=== PATIENT | male | born 1960 | race Caucasian/White ===

== ENCOUNTER 2017-02-23 17:08 | Inpatient (IN) ==
[2017-02-23] MEDS ORDERED: NS 1,000 ML IV ONE (17:30)
[2017-02-23 18:04] LABS: MANUAL DIFF NEEDED? NO
[2017-02-23 18:09] LABS: BASO% 0.2 % (0.0-0.8); EOS# 0.04 X1000 (0.0-0.7); EOS% 0.4 % (0.0-10.0); HEMATOCRIT 33.6 % (42.0-52.0); HEMOGLOBIN 11.1 g/dL (14.0-18.0); IMM GRAN# 0.03 X1000 (0.0-0.04); IMM GRAN% 0.3 % (0.0-0.5); LYMPH# 1.48 X1000 (1.2-3.4); LYMPH% 13.5 % (20.5-51.1); MCH 29.5 PG (27-31); MCV 89.4 FL (81-99); MONO# 0.98 X1000 (0.11-0.59); MONO% 8.9 % (1.7-9.3); NEUT% 76.7 % (42.2-75.2); PLT 226 X1000 (130-400); RBC 3.76 XMIL (4.7-6.1)
[2017-02-23 18:25] LABS: AGAP 9; ALBUMIN 3.1 g/dL (3.5-5.0); ALKALINE PHOSPHATASE 94 U/L (32-122); BUN 8 mg/dL (8-22); CALCIUM 7.7 mg/dL (8.8-10.2); CHLORIDE 101 mmol/L (98-107); COSMO 271; GOT 13 U/L (10-34); GPT 9 U/L (10-44); POTASSIUM 3.1 mmol/L (3.5-5.1); SODIUM 137 mmol/L (136-145); TCO2 27 mmol/L (25-35); TOTAL BILIRUBIN 0.54 mg/dL (0.20-1.00); TOTAL PROTEIN 5.6 g/dL (6.3-8.3)
[2017-02-23] MEDS ORDERED: ZOFRAN IV ONE (18:26)
[2017-02-23] MEDS ORDERED: MORPHINE IV ONE ×2 (18:26→19:53)
[2017-02-23] MEDS ORDERED: KLOR-CON PO ONE (19:53)
[2017-02-23] MEDS ORDERED: VANCOMYCIN 1 GM/NS 1 GM/250 ML IVPB IV ONE (21:34)
[2017-02-23] MEDS ORDERED: ZOFRAN IV PRN (21:34)
[2017-02-23] MEDS ORDERED: TYLENOL PO PRN (21:34)
[2017-02-23] MEDS: HUMALOG SUBQ SCH (22:17)
[2017-02-23 22:37] LABS: HEMOGLOBIN A1C 4.6 % (4.8-6.0)
[2017-02-23] MEDS: MERREM 1 GM in NS 50 ML IV SCH (22:55)
[2017-02-23] MEDS: MORPHINE IV PRN (22:55)
[2017-02-23] MEDS: LOVENOX SUBQ SCH (22:58)
[2017-02-24] MEDS: MORPHINE IV PRN ×7 (02:26→21:29)
[2017-02-24] MEDS: MERREM 1 GM in NS 50 ML IV SCH (05:34)
[2017-02-24] MEDS: PRILOSEC PO SCH ×2 (05:52→06:15)
[2017-02-24] MEDS: HUMALOG SUBQ SCH ×4 (06:15→21:30)
[2017-02-24 06:22] LABS: MANUAL DIFF NEEDED? NO
[2017-02-24 06:36] LABS: BASO% 0.5 % (0.0-0.8); EOS% 1.3 % (0.0-10.0); HEMATOCRIT 33.6 % (42.0-52.0); HEMOGLOBIN 10.8 g/dL (14.0-18.0); IMM GRAN# 0.02 X1000 (0.0-0.04); IMM GRAN% 0.3 % (0.0-0.5); LYMPH% 21.7 % (20.5-51.1); MCHC 32.1 g/dL (33-37); MCV 90.1 FL (81-99); MONO# 0.91 X1000 (0.11-0.59); MONO% 11.6 % (1.7-9.3); MPV 11.7 FL (7.4-10.4); NEUT% 64.6 % (42.2-75.2); PLT 223 X1000 (130-400); RBC 3.73 XMIL (4.7-6.1)
[2017-02-24 07:14] LABS: AGAP 12; ALBUMIN 2.8 g/dL (3.5-5.0); ALKALINE PHOSPHATASE 93 U/L (32-122); BUN 6 mg/dL (8-22); CALCIUM 7.5 mg/dL (8.8-10.2); CHLORIDE 102 mmol/L (98-107); COSMO 278; GOT 15 U/L (10-34); GPT 8 U/L (10-44); POTASSIUM 3.6 mmol/L (3.5-5.1); SODIUM 141 mmol/L (136-145); TCO2 27 mmol/L (25-35); TOTAL BILIRUBIN 0.55 mg/dL (0.20-1.00); TOTAL PROTEIN 5.5 g/dL (6.3-8.3)
[2017-02-24] MEDS: ZYLOPRIM PO SCH (09:49)
[2017-02-24] MEDS: KLONOPIN PO SCH ×3 (09:49→16:17)
[2017-02-24] MEDS: METHADONE PO SCH ×3 (09:49→16:18)
[2017-02-24] MEDS: ZOSYN 3.375 GM in NS 50 ML IV SCH ×2 (16:22→21:31)
[2017-02-24] MEDS: LOVENOX SUBQ SCH (21:30)
[2017-02-25] MEDS: MORPHINE IV PRN ×7 (00:30→21:07)
[2017-02-25] MEDS: ZOSYN 3.375 GM in NS 50 ML IV SCH ×4 (04:28→22:00)
[2017-02-25] MEDS: HUMALOG SUBQ SCH ×4 (06:06→21:08)
[2017-02-25] MEDS: PRILOSEC PO SCH (06:53)
[2017-02-25] MEDS: METHADONE PO SCH ×2 (10:29→14:13)
[2017-02-25] MEDS: ZYLOPRIM PO SCH (10:30)
[2017-02-25] MEDS: KLONOPIN PO SCH ×2 (10:30→14:13)
[2017-02-25] MEDS ORDERED: VANCOMYCIN IV PER PHARMACY MISC SCH (11:00)
[2017-02-25 12:18] LABS: INR 1.05; PROTIME 11.1 Seconds (9.2-11.7)
[2017-02-25] MEDS ORDERED: NS 250 ML ONE (14:01)
[2017-02-25] MEDS: VANCOMYCIN 1,800 MG in NS 250 ML IV SCH (17:48)
[2017-02-25] MEDS: LOVENOX SUBQ SCH (21:08)
[2017-02-26] MEDS: MORPHINE IV PRN ×8 (00:10→22:04)
[2017-02-26] MEDS: VANCOMYCIN 1,800 MG in NS 250 ML IV SCH ×2 (03:25→15:01)
[2017-02-26] MEDS: ZOSYN 3.375 GM in NS 50 ML IV SCH ×5 (05:20→21:30)
[2017-02-26] MEDS: HUMALOG SUBQ SCH ×4 (06:03→21:31)
[2017-02-26] MEDS: PRILOSEC PO SCH (06:04)
[2017-02-26] MEDS: ZYLOPRIM PO SCH (08:35)
[2017-02-26] MEDS: METHADONE PO SCH ×4 (08:35→17:11)
[2017-02-26] MEDS: KLONOPIN PO SCH ×4 (08:36→17:11)
[2017-02-26] MEDS: LOVENOX SUBQ SCH (21:31)
[2017-02-27] MEDS: MORPHINE IV PRN ×7 (01:00→21:58)
[2017-02-27] MEDS: VANCOMYCIN 1,800 MG in NS 250 ML IV SCH (02:57)
[2017-02-27] MEDS: ZOSYN 3.375 GM in NS 50 ML IV SCH (05:49)
[2017-02-27] MEDS: PRILOSEC PO SCH (07:34)
[2017-02-27] MEDS: HUMALOG SUBQ SCH ×4 (07:34→22:02)
[2017-02-27] MEDS: ZYLOPRIM PO SCH (08:44)
[2017-02-27] MEDS: METHADONE PO SCH ×3 (08:44→18:57)
[2017-02-27] MEDS: KLONOPIN PO SCH ×3 (10:16→18:57)
[2017-02-27] MEDS ORDERED: TEMOVATE 0.05% CREAM TOP PRN (13:01)
[2017-02-27 15:14] LABS: RANDOM VANCOMYCIN 26.6 ug/mL (5.0-80)
[2017-02-27] MEDS: KEFZOL 2 GM/D5W 2 GM/50 ML IVPB IV SCH (19:02)
[2017-02-27] MEDS: LOVENOX SUBQ SCH (21:58)
[2017-02-28] MEDS: MORPHINE IV PRN ×3 (02:57→10:05)
[2017-02-28] MEDS: KEFZOL 2 GM/D5W 2 GM/50 ML IVPB IV SCH ×4 (02:57→20:28)
[2017-02-28] MEDS: HUMALOG SUBQ SCH ×4 (06:11→23:42)
[2017-02-28] MEDS: PRILOSEC PO SCH (06:55)
[2017-02-28] MEDS: KLONOPIN PO SCH ×3 (08:49→20:27)
[2017-02-28] MEDS: ZYLOPRIM PO SCH (08:49)
[2017-02-28] MEDS: METHADONE PO SCH ×4 (08:49→20:27)
[2017-02-28] MEDS: PERCOCET-10 PO PRN ×2 (13:51→21:06)
[2017-02-28] MEDS ORDERED: MORPHINE IV ONE (16:54)
[2017-02-28] MEDS: LOVENOX SUBQ SCH ×2 (20:28→23:42)
[2017-03-01] MEDS: PERCOCET-10 PO PRN ×3 (02:47→10:56)
[2017-03-01] MEDS: KEFZOL 2 GM/D5W 2 GM/50 ML IVPB IV SCH ×2 (03:53→11:47)
[2017-03-01 06:09] LABS: BASO% 0.5 % (0.0-0.8); EOS# 0.16 X1000 (0.0-0.7); EOS% 2.4 % (0.0-10.0); HEMATOCRIT 31.1 % (42.0-52.0); HEMOGLOBIN 10.1 g/dL (14.0-18.0); LYMPH# 1.13 X1000 (1.2-3.4); MANUAL DIFF NEEDED? NO; MCH 29.6 PG (27-31); MCHC 32.5 g/dL (33-37); MCV 91.2 FL (81-99); MONO# 0.53 X1000 (0.11-0.59); MPV 11.1 FL (7.4-10.4); NEUT% 72.1 % (42.2-75.2); PLT 203 X1000 (130-400); RBC 3.41 XMIL (4.7-6.1)
[2017-03-01 06:15] VITALS: BP 150/81
[2017-03-01] MEDS: PRILOSEC PO SCH (06:37)
[2017-03-01] MEDS: HUMALOG SUBQ SCH ×2 (06:48→11:49)
[2017-03-01] MEDS: METHADONE PO SCH (08:05)
[2017-03-01] MEDS: KLONOPIN PO SCH (08:05)
[2017-03-01] MEDS: ZYLOPRIM PO SCH (08:05)
== END 2017-03-01 12:58 | disposition home health service (06) ==
LOC: ED 17:08 → 4N 21:09 → SUATTDRO 21:09
PROVIDERS: ATTEND Internal Medicine

== ENCOUNTER 2018-07-24 15:58 | Inpatient (IN) ==
[2018-07-24] MEDS ORDERED: DUONEB (A & A) INH ONE (17:24)
[2018-07-24] MEDS ORDERED: MORPHINE IV ONE (17:26)
[2018-07-24] MEDS ORDERED: ZOFRAN IV ONE (17:26)
[2018-07-24] MEDS ORDERED: DUONEB (A & A) ONE (18:12)
[2018-07-24 18:53] LABS: BASO# 0.04 X1000 (0.0-0.2); BASO% 0.7 % (0.0-0.8); EOS# 0.11 X1000 (0.0-0.7); EOS% 1.9 % (0.0-10.0); HEMATOCRIT 30.1 % (42.0-52.0); HEMOGLOBIN 9.6 g/dL (14.0-18.0); LYMPH# 1.71 X1000 (1.2-3.4); LYMPH% 28.9 % (20.5-51.1); MCH 27.9 PG (27-31); MCHC 31.9 g/dL (33-37); MCV 87.5 FL (81-99); MONO# 0.52 X1000 (0.11-0.59); MONO% 8.8 % (1.7-9.3); MPV 12.2 FL (7.4-10.4); NEUT# 3.54 X1000 (1.4-6.5); NEUT% 59.7 % (42.2-75.2); PLT 182 X1000 (130-400); RBC 3.44 XMIL (4.7-6.1); WBC 5.92 X1000 (4.8-10.8)
[2018-07-24 19:06] LABS: INR 1.05; PROTIME 14.5 Seconds (11.0-16.0)
[2018-07-24 19:18] LABS: AGAP 11; ALB/GLOB RATIO 1.3; ALBUMIN 3.4 g/dL (3.5-5.0); ALKALINE PHOSPHATASE 88 U/L (32-122); BUN 9 mg/dL (8-22); CALCIUM 9.1 mg/dL (8.8-10.2); CHLORIDE 102 mmol/L (98-107); COSMO 275; CREATININE 0.6 mg/dL (0.7-1.2); ESTIMATED GFR > 60; GLUCOSE 80 mg/dL (70-104); GOT 31 U/L (10-34); GPT 21 U/L (10-44); POTASSIUM 3.3 mmol/L (3.5-5.1); SODIUM 139 mmol/L (136-145); TCO2 26 mmol/L (25-35); TOTAL BILIRUBIN 0.33 mg/dL (0.20-1.00)
--- NOTE | 2018-07-24 20:08 | PROVIDER DOCUMENTATION ---
This chart was entered by Rossana Schneider Scribe, acting as scribe for Omkar Garces MD. HPI-Musculoskeletal Pain/Inj - GENERAL Chief Complaint: Post Op Complaint Stated Complaint: DR SANDRA REF Time Seen by Provider: 07/24/18 17:22 Source: patient - HX OF PRESENT ILLNESS-MUSKULOSKELTAL Nature of Presenting Problem: 58 yom presents post op Jul 09 to right great toe. Pt reports he was sent here by Dr. Sandra to be treated for possible osteomylitis. Pt reports Dr. Sandra wants pt to be treated with IV antibiotics and a picc line placed. Pt reports he is already taking Keflex 500mg 3 times a day. Pt is on xarelto. Pt reports right foot sx in September had screws that were coming out and a wound to right great toe. States July 09 to have screws removed and today to have sutures removed.. Pt reports that Dr. Sandra wants to be consulted and wants Dr. Kimble infectious disease consulted. Review of Systems - Adult - REVIEW OF SYSTEMS - ADULT Constitutional: denies: chills, fever, fatique Eyes: reports: no symptoms reported Ears, Nose, Mouth & Throat: denies: ear pain, sinus problem, throat pain Cardiovascular: denies: chest pain, irregular heart rate, syncope Respiratory: denies: cough, shortness of breath, wheezing Gastrointestinal: reports: no symptoms reported Genitourinary: reports: no symptoms reported Musculoskeletal: reports: see HPI. denies: joint pain, joint swelling, neck pain Integumentary: reports: see HPI, other (right great toe infection) Neurological: denies: ataxia, dizziness/vertigo, headache/migraines, numbness, paresthesia, seizure, slurred speech Psychiatric: reports: no symptoms reported Endocrine: reports: no symptoms reported Hematologic/Lymphatic: denies: lymphedema, prolonged bleeding Allergic/Immunologic: denies: allergic reactions, food allergy, frequent infections, urticaria All Other Systems: Reviewed and Negative Past History - Adult - PAST MEDICAL HISTORY-ADULT Review of Records: reports: Nursing Assessment Review, Medications Reviewed Major Childhood Illnesses: reports: denies history Cardiovascular: reports: A-Fib, blood clots, HTN Musculoskeletal: reports: arthritis - PRIOR SURGERIES/PROCEDURES Surgical/Procedure History: reports: cholecystectomy, hernia repair, gastric bypass - IMMUNIZATION STATUS Childhood Immunizations: See Nurse Assessment Flu Vaccine: See Nurse Assessment - FAMILY HISTORY Family History: reviewed, not pertinent - SOCIAL HISTORY Smoking: denies Substance Use: none/never Physical Exam-Injury Related - Physical Exam-Injury Related Initial Vital Signs Reviewed: Yes General Appearance: appears well, alert, no apparent distress Eyes: PERRL/EOMI Head, Ears, Nose, Mouth & Throat: moist mucous membranes Neck: non-tender, full range of motion, supple, normal inspection Respiratory: chest non-tender, lungs clear, normal breath sounds, no pleuratic chest pain, no respiratory distress, no accessory muscle use Cardiovascular: regular rate, rhythm Peripheral Pulses: dorsalis-pedis (R): 2+, dorsalis-pedis (L): 2+ Abdominal Exam: non tender, soft, no organomegaly, no pulsatile mass Lymphatic: no adenopathy Back Exam: normal inspection Extremity: swelling (BLE pretibial edema and erythema) Integumentary: normal color, warm/dry, other (small amount of bleeding from distal right great toe with minor ulceration, erythematous, tender) Neurologic: grossly normal Psych/Mental Status: oriented x 3 - Glascow Coma Score Puma Total: 15 Progress - PLAN OF CARE/RESULTS Progress/Plan/Lab Results: Vital Signs - 8 hr 07/24/18 16:19 Temperature 99.1 F Pulse Rate 91 H Respiratory Rate 18 Blood Pressure 143/72 O2 Sat by Pulse Oximetry 100 Laboratory Results - last 24 hr 07/24/18 07/24/18 07/24/18 18:35 18:35 18:35 WBC 5.92 RBC 3.44 L Hgb 9.6 L Hct 30.1 L MCV 87.5 MCH 27.9 MCHC 31.9 L RDW Std Deviation 17.0 H Plt Count 182 MPV 12.2 H Immature Gran % (Auto) 0.0 Neut % (Auto) 59.7 Lymph % (Auto) 28.9 [place] % (Auto) 8.8 Eos % (Auto) 1.9 Baso % (Auto) 0.7 Immature Gran # (Auto) 0.00 Neut # (Auto) 3.54 Lymph # (Auto) 1.71 [place] # (Auto) 0.52 Eos # (Auto) 0.11 Baso # (Auto) 0.04 PT 14.5 INR 1.05 PTT (Actin FS) 31.0 Sodium 139 Potassium 3.3 L Chloride 102 Carbon Dioxide 26 Anion Gap 11 BUN 9 Creatinine 0.6 L Estimated GFR/1.73 m2 > 60 BUN/Creatinine Ratio 15 Glucose 80 Calculated Osmolality 275 Calcium 9.1 Total Bilirubin 0.33 AST 31 ALT 21 Alkaline Phosphatase 88 Total Protein 6.0 L Albumin 3.4 L Globulin 2.6 Albumin/Globulin Ratio 1.3 Orders Category Date Time Status BLOOD CULTURE [BLDCUL] Stat Lab 07/24/18 18:35 Ordered CBC WITH ELECTRONIC DIFF [HEME] Stat Lab 07/24/18 18:35 Completed COMPREHENSIVE METABOLIC PANEL [CHEM] Stat Lab 07/24/18 18:35 Completed PT [PROTIME WITH INR] [COAG] Stat Lab 07/24/18 18:35 Completed PTT [COAG] Stat Lab 07/24/18 18:35 Completed Albuterol 2.5MG/Ipratrop 0.5MG [Duoneb (A & A)] Med 07/24/18 18:12 Discontinued 3 ml .ROUTE .STK-MED ONE Albuterol 2.5MG/Ipratrop 0.5MG [Duoneb (A & A)] Med 07/24/18 17:24 Discontinued 3 ml INH NOW ONE Morphine Med 07/24/18 17:26 Discontinued 2 mg IV NOW ONE Ondansetron [Zofran] Med 07/24/18 17:26 Discontinued 4 mg IV NOW ONE Result Diagrams: 07/24/18 18:35 07/24/18 18:35 - CONSULTS/PCP/HOSPITALIST Notification #1 *Consult/PCP/Hospitalist*: Dr. Bermudez Time Discussed: 20:00 Consult Disposition: Admit Departure - Departure Date of Disposition Decision: 07/24/18 Time of Disposition Decision: 20:08 DIAGNOSIS: Osteomyelitis Qualifiers: Osteomyelitis type: unspecified type Osteomyelitis location: foot Laterality: right Qualified Code(s): M86.9 - Osteomyelitis, unspecified Disposition: ADMITTED INPATIENT 09 Certified Medical Emergency: Emergent Condition: Fair - Critical Care Note This patient required my direct & personal management of CC.: No Attestation - Physician/ LISA Attestation Patient care was provided by Advanced Practice Provider:: No The physician spent face to face time with patient:: Yes Advanced Practice Provider documentation review:: Supervising physician onsite and consulted in the evaluation and care of this patient. The physician did have a face to face encounter with the patient. This chart was documented by the indicated scribe, (Rossana Schneider Scribe) and accurately reflects the services I performed and decisions made by , Omkar Garces MD, as attested by the provider's signature.
[2018-07-24] MEDS ORDERED: ZOSYN 3.375 GM in NS 50 ML IV ONE (21:06)
[2018-07-24] MEDS ORDERED: ZYVOX PO ONE (21:06)
[2018-07-24 22:10] LABS: RETIC% 1.38 % (0.8-2.1); RETIC-HE 29.6 PG (28.2-36.6)
[2018-07-24] MEDS ORDERED: TYLENOL PO PRN (22:41)
[2018-07-24] MEDS ORDERED: NS + KCL 20 MEQ 1,000 ML IV SCH (22:41)
[2018-07-24] MEDS ORDERED: ZOFRAN IV PRN (22:41)
--- NOTE | 2018-07-24 23:06 | HISTORY AND PHYSICAL ---
PRIMARY CARE PHYSICIAN: Dr. Danielle Dial. REASON FOR ADMISSION: Three-day history of redness, pain and swelling of right foot. HISTORY OF PRESENT ILLNESS: Mr. Talon Ornelas is a pleasant 58-year-old man with a medical history of morbid obesity with a Omar-en-Y bypass in 2001, left foot osteomyelitis, prior DVTs complicated with pulmonary emboli in 2007, congestive heart failure, gout, kidney stones, spinal stenosis, prior history of pyoderma gangrenosum, type 2 diabetes which resolved after his Omar-en-Y, chronic iron-deficiency anemia, paroxysmal atrial fibrillation, peripheral neuropathy, and diabetic retinopathy. He underwent surgery of his right hallux on 07/09/2018 to remove hardware in said part of body. The patient had some hardware placed in the right hallux in September of last year to correct severe hammertoe of the right large toe. Prior to the surgery he had been pretreated with a week's worth of Keflex, and this continued for another week, for a total of 2 weeks. Following the surgery a week later, the patient was seen by Dr. Augustin, who put him in a boot and was following him closely up until about 3 days ago, when he saw the patient and noticed that there was some redness streaking from his foot upwards proximally towards his right knee anteromedially. The patient was continued on Keflex, but 2 days later this redness and now swelling has spread to the left leg. On seeing the patient today, he recommended that the patient be admitted to the hospital for IV antibiotics and further evaluation. PAST SURGICAL HISTORY: The patient had a plate and screws in the right hallux in September 2017 with removal of said hardware on 07/09/2018. In addition to this, he has had bilateral 5th toe amputations, cholecystectomy, ventral hernia repair, anal fissure repair, Omar-en-Y in 2001, Indy filter in 2001, colonoscopy and EGD last performed in 2013, and bilateral hammertoe repair. He has bilateral retinal tear repair, abdominal incision dehiscence with multiple I and Ds after ventral hernia repair. FAMILY HISTORY: Notable for type 2 diabetes, strokes, coronary artery disease, pulmonary emboli, end-stage kidney disease in first-degree relative. SOCIAL HISTORY: Does not smoke but drinks 1 beer almost every night. Prior history of opioid dependence; hence, he is on methadone. He is and lives with his . LAB WORK: White count is 5000, hemoglobin and hematocrit 9 and 30, platelets 182 with normal differential. Potassium is 3.3, BUN 9, creatinine 0.6. Protein is 6, albumin 3.4. PFTs normal. Blood cultures pending. X-rays were done in Dr. Augustin's office. I do not have access to the reports. PHYSICAL EXAMINATION: VITAL SIGNS: Blood pressure is 143/72, heart rate 91, respirations 18, temperature 99.1, 100% on 2 liters nasal cannula. GENERAL: He is an obese, middle-aged man who is not in acute distress. He is alert and oriented x3 with a normal mood and affect. HEENT: Head is normocephalic, atraumatic. Eyes PERRL, EOMI. He is anicteric but pale. ENT: Oropharynx exam is grossly normal. No central cyanosis. NECK: Supple. No JVD, carotid bruit, or thyromegaly. CHEST: Clear when auscultated with good air entry in both lung kyle. CARDIOVASCULAR: First and second heart sounds heard. No gallops, murmurs or rubs. Rhythm is regular. ABDOMEN: Slightly protuberant with a lot of excess sagging skin. No tenderness elicited. No masses or megaly appreciated. He has slightly hyperactive bowel sounds. RECTAL: Deferred. EXTREMITIES: The patient has bilateral mild erythema of both shins midway. They are warm to touch. I could not elicit any tenderness. He has a slightly macerated and dystrophic nail bed of the right hallux. No surrounding erythema noted. No exudation noted. No obvious skin breakdown elsewhere on either foot or either hand. The patient has good distal pulse volume in all extremities, regular and symmetrical. He has trace edema in both lower extremities No clubbing or peripheral cyanosis noted. NEUROLOGIC: Grossly intact. No gross focal deficits. SKIN: See above, but otherwise grossly unremarkable. MUSCULOSKELETAL: Grossly normal other than bilateral amputations noted on each foot. ASSESSMENT: 1. Right hallux infection with possible osteomyelitis. 2. Bilateral lower extremity cellulitis. 3. Gout. 4. Hypertension. 5. Chronic iron-deficiency anemia, probably related to omar-en-Y bypass. 6. Atrial fibrillation, paroxysmal, currently in sinus rhythm. 7. Reflux disease. 8. Peripheral neuropathy. PLAN: The patient has seen Dr. Augustin today, who will be by tomorrow to see the patient in conjunction with Dr. Jerald Kimble of Infectious Disease. Will start the patient empirically on broad-spectrum antibiotics for coverage of Pseudomonas and MRSA, i.e., Zosyn and Zyvox respectively. Refer to ID for further modification of this treatment. The patient has requested that I get him to see Dr. Woody, his marketing research analyst, regarding his iron-deficiency anemia. Other chronic illnesses will be addressed based on the patient's medication reconciliation list. cc: MD Samm Wan MD Olakunle P. Akinsoto, MD
[2018-07-24] MEDS: DILAUDID IV PRN (23:30)
[2018-07-25] MEDS: DILAUDID IV PRN ×6 (02:43→22:17)
[2018-07-25] MEDS: ZOSYN 3.375 GM in NS 50 ML IV SCH ×3 (04:41→15:45)
[2018-07-25 07:14] LABS: BASO# 0.06 X1000 (0.0-0.2); BASO% 1.2 % (0.0-0.8); EOS# 0.17 X1000 (0.0-0.7); EOS% 3.5 % (0.0-10.0); HEMATOCRIT 29.7 % (42.0-52.0); HEMOGLOBIN 9.3 g/dL (14.0-18.0); LYMPH% 26.7 % (20.5-51.1); MCHC 31.3 g/dL (33-37); MCV 89.5 FL (81-99); MONO# 0.47 X1000 (0.11-0.59); MONO% 9.7 % (1.7-9.3); MPV 12.3 FL (7.4-10.4); NEUT# 2.87 X1000 (1.4-6.5); NEUT% 58.9 % (42.2-75.2); PLT 181 X1000 (130-400); RBC 3.32 XMIL (4.7-6.1); RDW 17.3 % (11.5-14.5); WBC 4.87 X1000 (4.8-10.8)
[2018-07-25 07:19] LABS: HEMOGLOBIN A1C 4.6 % (4.8-6.0)
[2018-07-25 07:54] LABS: AGAP 9; ALB/GLOB RATIO 1.3; ALBUMIN 3.1 g/dL (3.5-5.0); ALKALINE PHOSPHATASE 83 U/L (32-122); BUN 9 mg/dL (8-22); CALCIUM 8.7 mg/dL (8.8-10.2); CHLORIDE 106 mmol/L (98-107); COSMO 280; CREATININE 0.7 mg/dL (0.7-1.2); ESTIMATED GFR > 60; GLUCOSE 73 mg/dL (70-104); GOT 31 U/L (10-34); GPT 19 U/L (10-44); POTASSIUM 4.2 mmol/L (3.5-5.1); SODIUM 142 mmol/L (136-145); TCO2 27 mmol/L (25-35); TOTAL BILIRUBIN 0.29 mg/dL (0.20-1.00); TOTAL IRON 43 ug/dL (53-167); TOTAL PROTEIN 5.5 g/dL (6.3-8.3)
[2018-07-25 08:10] LABS: TSH 5.78 uIUmL (0.27-4.20)
--- NOTE | 2018-07-25 08:10 | PROGRESS NOTE ---
DATE: 07/25/2018 SUBJECTIVE: Mr. Johnson Jr., is lying in bed this morning. He is actually feeling a little better already. OBJECTIVE: On right lower extremity exam, the erythema that was up the leg is looking better already. He does not have as much erythema there. His swelling has come down a little bit. ASSESSMENT: 1. Right lower extremity cellulitis. 2. Right great toe infection, status post irrigation and debridement. PLAN: I am going to get Dr. Kimble to see Mr. Johnson Jr., today and recommend antibiotics. It looks like he is already starting to clear up some of the cellulitis that he had in his leg. From an orthopedic standpoint, he is to weight-bear as tolerated to the right lower extremity. We will continue to follow his great toe wound and the cellulitis of his leg. cc: Samm Augustin MD
[2018-07-25] MEDS: ZYVOX PO SCH ×2 (09:58→22:17)
--- NOTE | 2018-07-25 10:34 | Diag Imaging Result Doc PS360 ---
EXAM: FOOT 2 VIEWS RIGHT HISTORY: R great toe osteomyelitis TECHNIQUE: Right foot, two views COMPARISON: None. FINDINGS: The fifth metatarsal and toe has been removed. There are bone erosions to the distal phalanx of the great toe. Long-standing arthritis to the interphalangeal joint of the second toe. There are posterior and inferior calcaneal bone spurs. There is tarsal joint space narrowing. IMPRESSION: Distal great toe bone erosions consistent with osteomyelitis. Electronically signed by Jeff Syed 07/25/2018 10:31 AM
--- NOTE | 2018-07-25 11:58 | INFECTIOUS DISEASE CONSULT REP ---
DATE: 07/25/2018 CONCLUSION: The patient is admitted to the hospital with infection of his right great toe. He recently had surgery on the toe with removal of the hardware of the foot. RECOMMENDATIONS: I think it is reasonable to treat the patient with Zyvox and Zosyn pending results of a culture I took from the toe about an hour ago. DISCUSSION: The patient tells me approximately 4 days ago the right foot started becoming erythematous and swelling. He had previously had surgery on the foot to remove metal. He was not having any fever or shaking chills. LABORATORY DATA: His CBC shows a white count of 4870, hemoglobin 9.3, and platelet count 181,000. Creatinine is 0.7. GFR is greater than 60. Liver function studies are normal. Blood cultures are pending. PAST MEDICAL HISTORY: REVIEW OF SYSTEMS: Eyes and ears: The patient denies any trouble hearing or seeing. Neck: No stiffness. Respiratory: No cough or shortness of breath. Cardiac: No chest pain or palpitations. GI: No nausea, vomiting, or diarrhea. : No dysuria or flank pain. Bones, joints, muscles: See present illness. Integument: No rash. Neurologic: No seizures. The patient does have, however, peripheral neuropathy and diabetic retinopathy. PREVIOUS HOSPITALIZATIONS AND OPERATIONS: The patient has had multiple procedures done on both legs. He has also had a cholecystectomy, ventral hernia repair, anal fissure repair, Venkata-en-Y for weight loss purposes, Indy filter placement. colonoscopy, and esophagogastroduodenoscopies, bilateral hammertoe repair, history of inserting PICCs and subclavian catheters, bilateral retinal tear repair, and abdominal incision dehiscence with multiple I and D's after ventral hernia repair. MEDICAL DISEASES: Positive for atrial fibrillation, chronic osteomyelitis of the left foot, morbid obesity, chronic low back pain, iron-deficiency anemia, diabetes mellitus which was resolved after doing a Venkata-en-Y surgical procedure. The patient also has sepsis secondary to mustard gas. Pyoderma gangrenosum of the left leg, abdomen, and tongue. Cardiomegaly, and congestive heart failure, osteoporosis and scoliosis, spinal stenosis, renal calculi, gout, gastroesophageal reflux disease, bilateral retinal tears with repair, abdominal wound dehiscence after ventral hernia repair, peripheral neuropathy, pulmonary emboli, deep venous thrombosis of both legs, and anxiety and depression. SOCIAL HISTORY: The patient drinks beer, but he does not smoke cigarettes or abuse drugs. He did have a history of opiate dependence. The patient is . FAMILY HISTORY: Positive for end-stage renal disease, myocardial infarction, stroke, pulmonary emboli, diabetes mellitus, colon cancer, and chronic myelogenous leukemia. ALLERGIES: The patient is allergic to codeine, sulfa, latex, Lyrica, Toradol, tramadol, and oxycodone. HOME MEDICATIONS: Include allopurinol, vitamins, minerals, Prolia, Lasix, methadone, Prilosec, Zofran, Xarelto, and Zoloft. PHYSICAL EXAMINATION: Vital signs: Temperature is 97.9, pulse 76, respirations 22, blood pressure 132/86. The patient weighs 233 pounds. General: This is an ill-appearing middle-aged male. He is in no acute distress. Head, eyes, ears, nose, and throat: He can see near objects. He can hear my spoken words. He does not have any white patches on his tongue. Neck: No stiffness. Lungs: Clear to auscultation. Cardiovascular: Heart rate is regular. Abdomen: Soft and nontender. Extremities: The patient's right great toe is swollen and erythematous, and there is an area distally where there is a small amount of bleeding. Culture was taken of the great toe discharges including the blood. Neurologic: The patient is awake. He can move his extremities. There is no tremor. His sensation is diminished in his lower legs. Integument: No rash. Bones/joints/muscles: The right great toe is erythematous, swollen, and has some bleeding distally from it. Neurologic: The patient is awake. He can move his extremities. There is no tremor. He had decreased sensation in his feet. Thank you for the consult. cc: Vahid Kimble MD
--- NOTE | 2018-07-25 15:28 | PROGRESS NOTE ---
DATE: 07/25/2018 SUBJECTIVE: Patient reports feeling fine. Reports that the erythema in both lower extremities is getting better. OBJECTIVE: Vital Signs: Temperature 97.9, heart rate 80, respiratory rate 20, blood pressure 139/65, O2 saturation 99% on room air. General: This is a 58-year-old male lying in bed in no acute distress. HEENT: Head is normocephalic and atraumatic. Neck: No JVD noted. Cardiovascular: S1, S2 heard. No murmurs, gallops, or rubs. Regular rate and rhythm. Respiratory: Clear bilaterally to auscultation. No work of breathing noted. Abdomen is soft, nontender to palpation. Bowel sounds present. No organomegaly. Extremities: No clubbing, cyanosis, or edema. Peripheral pulses present in both legs. There is bilateral mild erythema on both shins midway warm to touch. Also, right hallux with slightly macerated dystrophic nail bed. No surrounding erythema noted. No oxidation noted. No obvious skin breakdown. Neurologic: Patient alert and oriented x3. Moves 4 extremities. LABORATORY DATA: Hemoglobin 9.3, normal white cell count. Hemoglobin A1c 4.6. ASSESSMENT AND PLAN: 1. Right hallux infection with possible osteomyelitis. 2. Bilateral lower extremity cellulitis. 3. Hypertension. 4. Chronic iron deficiency anemia. 5. Atrial fibrillation, paroxysmal. 6. Reflux disease. 7. Peripheral neuropathy. PLAN: At this point, Infectious Disease and Orthopedics have been consulted. Plan from the orthopedic standpoint is to continue with medical management. Currently, this patient is on Zosyn and Zyvox. We will continue with the same management. We will continue to monitor this patient closely. cc: Reginaldo Kelly MD
[2018-07-26] MEDS: ZOSYN 3.375 GM in NS 50 ML IV SCH ×3 (01:59→13:30)
[2018-07-26] MEDS: DILAUDID IV PRN ×6 (02:16→21:57)
[2018-07-26] MEDS: ZYVOX PO SCH ×2 (09:44→20:34)
[2018-07-26] MEDS ORDERED: ZOFRAN PO PRN (14:00)
--- NOTE | 2018-07-26 14:25 | PROGRESS NOTE ---
DATE: 07/26/2018 SUBJECTIVE: Mr. Ornelas is lying comfortably in bed. He complains that some of his home medications have not been reconciled. OBJECTIVE: On right lower extremity exam, the wound on the right great toe looks good. It is dry. There is no erythema or drainage. He does not have any cellulitis to the lower extremity. He does still have some edema, but this is bilateral. ASSESSMENT: 1. Right lower extremity cellulitis. 2. Right great toe infection, status post irrigation and debridement. PLAN: I think Mr. Ornelas is looking a lot better. That lower extremity no longer has any erythema. He is feeling well. The wound itself looks fine. I do not think we need to do any local wound treatment at this point. Things are looking a lot better. Will see if Dr. Kimble wants to continue IV antibiotics or transition him to oral. Dictated by DU Ibrahim for Samm Augustin MD cc: DU Ibrahim MD
[2018-07-26] MEDS ORDERED: METHADONE PO SCH (17:00)
--- NOTE | 2018-07-26 18:24 | PROGRESS NOTE ---
DATE: 07/26/2018 INTERVAL HISTORY: No overnight events. His swelling in both lower extremities has been going down. He previously had underwent irrigation and debridement of his right great toe wound. Currently, patient denies any chest pain, shortness of breath. He occasionally has nausea, which is usual for him considering gastrectomy. His bilateral lower extremity pain and swelling has been significantly decreasing. However, he states that he occasionally has both feet hurting and would like to increase the hydromorphone dosing. VITAL SIGNS: Temperature 98.3, pulse 76, blood pressure 123/70, saturating 96% on room air. PHYSICAL EXAMINATION: General: Morbidly obese. Does not appear in any acute distress. HEENT: Oral cavity is moist. Lungs: Air entry bilaterally equal. No wheezes, rhonchi or crackles. Abdomen: Soft, nontender. Lower Extremities: He has mild swelling bilateral lower extremities, which to his opinion has significantly decreased. He still has some erythema and pain affecting right great toe which is significantly decreased than since presentation. LABORATORY: Microbiology culture from his right foot is growing MRSA. Blood culture no growth to date. ASSESSMENT AND PLAN: 1. Right side big toe cellulitis with suspected osteomyelitis. Continue patient on p.o. linezolid as per ID recommendation. After talking with Radiology, plan is to get MRI to rule out osteomyelitis tomorrow, though the patient does have IVC filter in place. Based on further imaging, duration of antibiotics will be decided. 2. History of atrial fibrillation, currently rate well controlled. Continue patient on his home Xarelto. 3. Chronic pain. He is on methadone. He thinks that currently hydromorphone is working for him. I will give him one more day of IV hydromorphone to make sure his pain and swelling is decreasing and tomorrow I will transition him to p.o. pain medication. 4. Chronic gout. Continue home allopurinol. 5. Continue home ferrous sulfate for chronic anemia and vitamin B12 with multivitamin. 6. For chronic GERD, continue home antacids. 7. Anxiety and depression. Continue home sertraline. 8. Disposition: Patient remains inside the hospital as we await further imaging. Once the imaging is obtained, based on it, we will decide the duration of antibiotics and consider discharging him home, hopefully in the next 24 to 48 hours. Plan of care was discussed with him. All of his questions have been answered. cc: Saw Carter MD MTDD
--- NOTE | 2018-07-26 18:49 | INFECTIOUS DISEASE PROGRESS NO ---
DATE: 07/26/2018 PRESENT ILLNESS: The patient has an infected right great toe. He has recently had surgery on the toe to remove hardware in the patient's foot. MEDICATION: The patient is receiving Zyvox and Zosyn. PHYSICAL EXAMINATION: Vital Signs: Temperature is 98.3 degrees, pulse 76, respirations 18, blood pressure 123/70. General: This is an obese, middle-aged male. He is in no acute distress. Head, eyes, ears, nose, throat: He can hear my spoken words and see near objects. He does not have any white coating on his tongue. Neck: No stiffness. Lungs: Clear to auscultation. Cardiovascular: Regular heart rate. Abdomen: Soft and nontender. Extremities: The patient's right great toe is less swollen than it was yesterday and it is not draining. The patient's right leg from the knee down is more swollen than the left side. It is a little bit tender. Neurologic: Patient is awake. He can move his extremities. There is no tremor. LAB AND X-RAY: Culture from the right great toe is growing a gram-positive coccus. Blood cultures are negative. There has been no radiographic procedure done today on the patient. ASSESSMENT AND PLAN: Patient has an infected right great toe. Our plan is to continue Zyvox and discontinue Zosyn pending culture results. Also, I plan on getting an MRI of the patient's right great toe to look for the possibility of osteomyelitis. The patient has an inferior vena cava filter and I plan to check with the radiologist in the morning to see if an MRI can be done if there is an AV filter present. If the patient has osteomyelitis then he will need to have a PICC put in and to be set up for home IV antibiotics. COMORBIDITIES: The patient has diabetes mellitus. cc: Vahid Kimble MD
[2018-07-26] MEDS: ZOLOFT PO SCH (19:43)
[2018-07-26] MEDS: PERICOLACE PO SCH (20:34)
[2018-07-27] MEDS: DILAUDID IV PRN ×3 (01:12→08:06)
--- NOTE | 2018-07-27 08:05 | PROGRESS NOTE ---
DATE: 07/27/2018 SUBJECTIVE: Mr. Johnson Murillo is lying in bed and doing okay; actually is feeling pretty well overall. OBJECTIVE: Right lower extremity exam: The great toe looks a lot better. Almost all the erythema is gone. The wound is healing great. He really did not have any erythema up the leg now either. ASSESSMENT: Right leg cellulitis. PLAN: I discussed with Mr. Johnson Murillo about the toe. I think everything looks great. We recently took out hardware out of his toe and debrided some of that bone and then closed the skin over it. So, I think if we end up doing an MRI it is going to show postsurgical changes, and they will be able to tell whether there is osteomyelitis there or not. From an Orthopedic standpoint, he is looking pretty good. We may just warm about 3 or 4 weeks of IV antibiotics, then switch him over to something oral, and that way if there was some infection in the distal phalanx of his great toe, that would cover everything. Dr. Kimble is going to make final decisions on his IV antibiotics. cc: Samm Augustin MD
[2018-07-27] MEDS: THERA M PLUS PO SCH (08:09)
[2018-07-27] MEDS: FERROUS SULFATE PO SCH (08:09)
[2018-07-27] MEDS: PRILOSEC PO SCH (08:09)
[2018-07-27] MEDS: XARELTO PO SCH (08:09)
[2018-07-27] MEDS: VITAMIN B-12 SL SCH (08:09)
[2018-07-27] MEDS: PERICOLACE PO SCH ×2 (08:09→20:31)
[2018-07-27] MEDS: ZOLOFT PO SCH (08:09)
[2018-07-27] MEDS: ZYVOX PO SCH (08:09)
[2018-07-27] MEDS: CALTRATE 600 + D PO SCH (08:10)
[2018-07-27] MEDS: ZYLOPRIM PO SCH (08:10)
--- NOTE | 2018-07-27 08:52 | EKG Report ---
Test Performed on : 07/27/2018 08:40:09 AM Test Reason : Follow up QTc interval. Blood Pressure : / mmHG Vent. Rate : 073 BPM Atrial Rate : 073 BPM P-R Int : 134 ms QRS Dur : 100 ms QT Int : 364 ms P-R-T Axes : 022 -20 056 degrees QTc Int : 401 ms Normal sinus rhythm. Normal ECG When compared with ECG of 14-MAY-2018 10:26, aberrant conduction. is no longer present Confirmed by Collins GALVAN, Stone Lamar ([id number]) on 07/27/2018 9:22:54 AM
[2018-07-27] MEDS ORDERED: METHADONE PO SCH (09:00)
[2018-07-27] MEDS ORDERED: ZOLOFT PO SCH (09:00)
--- NOTE | 2018-07-27 09:02 | PROGRESS NOTE ---
DATE: 07/27/2018 INTERVAL HISTORY: No acute events overnight. His pain was well controlled. He was seen by the orthopedic doctor who had suggested that if we happen to get MRI it would still show postsurgical changes and it would be difficult to differentiate if he had osteomyelitis or not. SUBJECTIVE: The patient is complaining of some loose stools. He has had 3 loose bowel movements yesterday, but has not had any bowel movements today. On medication review, I also noted that he has been getting senna, which might be contributing to his diarrhea as well. PHYSICAL EXAMINATION: Vital Signs: Currently, temperature of 98 degrees, pulse 77, blood pressure 125/95, saturating 100% on room air. General: On physical examination, he does not appear in any acute distress. HEENT: Oral cavity is moist. Respiratory: Air entry bilaterally equal. No wheeze, rhonchi, or crackles. Cardiovascular: S1 and S2 normal. No murmur, rub, or gallop. Abdomen: Obese, soft, nontender. Lower Extremities: He has mild swelling of bilateral lower extremities, which has significantly decreased since my yesterday's examination. There is minimal pain effecting the right side great toe. He complains of some calf tenderness. LABORATORY: The lab examination, microbiology culture from right foot was growing MRSA. Blood culture with no growth to date. ASSESSMENT AND PLAN: 1. Right-side big toe cellulitis with suspected osteomyelitis. Initially, the patient had surgery on the right big toe on 07/09/2018 to remove the hardware he had for correction of his hammertoe, which was there for the last 8 months. However, following surgery, he developed an infection. Continue oral linezolid for methicillin-resistant Staphylococcus aureus cellulitis versus osteomyelitis. I am awaiting discussion with the infectious disease doctor about need for MRI or not considering that he had a recent surgical procedure and MRI may not yield good results and antibiotic duration. Need for a peripherally inserted central catheter line would be dependent on that. 2. History of atrial fibrillation, currently rate well controlled. Continue home Xarelto. Get EKG to see QTc prolongation, as he has been on linezolid and methadone. 3. Chronic pain. I will stop his intravenous Dilaudid and start him on his oral methadone. 4. Chronic gout. Continue home allopurinol. 5. For chronic anemia because of his gastrectomy, continue iron sulfate, vitamin and multivitamin. 6. Chronic gastroesophageal reflux disease. Continue home omeprazole. 7. History of gastrectomy for morbid obesity. Continue home calcium carbonate, vitamin D3. 8. History of anxiety or depression. Continue home sertraline. 9. Disposition pending discussion with Infectious Disease whether he would need intravenous antibiotic or by mouth antibiotic and whether he would need any imaging or not. cc: Saw Carter MD
[2018-07-27 09:07] LABS: INR 1.06; PROTIME 14.7 Seconds (11.0-16.0)
[2018-07-27 09:08] LABS: PTT 31.9 Seconds (22.3-41.8)
--- NOTE | 2018-07-27 11:31 | Extremity Venous Study ---
PROCEDURE NAME: Venous U/S Bilateral Legs - 07/24/2018 REQUESTING PHYSICIAN: Rita Bermudez MD. INTERPRETING PHYSICIAN: Efra Caicedo MD. INDICATION: Edema of the legs. DEPOSITION REPORTER: Uriah. EXAM FOR COMPARISON: 04/24/2018. FINDINGS: The deep and superficial veins of bilateral lower extremities are visualized along their course. There does appear to be chronic thrombus in the left superficial femoral vein with a lack of compressibility but maintained flow. Otherwise, there is no acute deep or superficial venous thrombosis seen. There is reflux noted in the right common femoral, greater saphenous, superficial femoral, and popliteal vein, and the left common femoral, greater saphenous, and superficial femoral vein. SUMMARY: Chronic DVT seen in left superficial femoral vein with maintained flow and bilateral deep and superficial venous reflux. cc: MD Rita Quach MD
--- NOTE | 2018-07-27 13:18 | INFECTIOUS DISEASE PROGRESS NO ---
DATE: 07/27/2018 PRESENT ILLNESS: Mr. Ornelas has an infected right great toe, growing methicillin -resistant staph aureus. MRI done today shows osteomyelitis of the distal phalanx of the great toe. MEDICATIONS: He is receiving Zyvox 600 mg by mouth every 12 hours, which we will change. PHYSICAL EXAMINATION: Vital Signs: Temperature is 98 degrees, pulse rate 77, respiratory rate 18, blood pressure 125/95. O2 saturation 100% on room air. General: This is a chronically ill- appearing, obese middle-aged gentleman. He is lying in the bed, currently in no acute distress. HEENT: Atraumatic, normocephalic. Oral mucous membranes are pink and moist. Conjunctivae are pale. Neck: Supple. Trachea is midline. Cardiovascular: Heart rate and rhythm are regular. Normal sinus rhythm with frequent PACs noted on the monitor. There is 1+ pretibial edema bilaterally. Respiratory: Lung sounds are clear to auscultation. Abdomen: Soft, obese and nontender. Bowel sounds are active. Integumentary: The right great toe has a dry, scabby area with minimal edema and erythema noted. Neurologic: He is awake, alert and oriented, able to ambulate without assistance. LABORATORY AND X-RAY: None available today. His right great toe has grown methicillin- resistant Staph aureus. EKG this morning showed a normal sinus rhythm. ASSESSMENT AND PLAN: Mr. Ornelas has osteomyelitis of the right great toe. He has grown MRSA in that toe. At this point, he is receiving Zyvox which we will discontinue. Orders for vancomycin per pharmacy dosing have been put in. I have also ordered a PICC line to be inserted tomorrow. Social work has been consulted for IV Vancomycin per pharmacy dosing x8 weeks. Day one is today. If he cannot afford home doses, we will have him come in for daily doses at OP infusion. I discussed this with the patient, and he agrees with this plan, which has been discussed with and recommended by Dr. Kimble. We will see him back in our office in 4 weeks, and then again at 8 weeks, after which time we should be able to discontinue his PICC. COMORBIDITIES: for Mr. Ornelas include history of gastric bypass with electrolyte imbalances, previous osteomyelitis of the left foot, history of deep venous thromboses and pulmonary emboli, congestive heart failure, diabetes mellitus with diabetic retinopathy and neuropathy. Dictated by DU Mata for Vahid Kimble MD This chart was documented by, DU Mata and accurately reflects the services performed, treatment plan and medical decisions as attested by the providers signature Vahid Kimble MD. cc: Vahid Kimble MD [facility]
[2018-07-27] MEDS ORDERED: VANCOMYCIN IV PER PHARMACY MISC SCH (14:30)
--- NOTE | 2018-07-27 14:34 | Diag Imaging Result Doc PS360 ---
MRI LOWER EXT W/WO CON-RIGHT - 07/27/2018 INDICATION: right great toe osteomyelitis TECHNIQUE: MRI right foot without and with intravenous contrast COMPARISON: X-rays from 07/25/2018 FINDINGS: There is soft tissue ulceration at the distal, medial great toe. There is circumferential soft tissue swelling about the distal great toe. There is some bone marrow edema of the distal great toe consistent with osteomyelitis. There are hammertoes throughout the remaining toes. No drainable fluid collections. No evidence of mass. There is intense contrast enhancement throughout the distal phalanx of the great toe. IMPRESSION: Osteomyelitis of the distal phalanx of the great toe. There is surrounding cellulitis and soft tissue ulceration. No fluid collections. Electronically signed by Rodriguez Craven 07/27/2018 2:32 PM
[2018-07-27] MEDS ORDERED: VANCOMYCIN 2 GM in NS 500 ML IV SCH (16:00)
[2018-07-27] MEDS: METHADONE PO SCH ×2 (16:24→20:31)
[2018-07-28] MEDS: PRILOSEC PO SCH (06:33)
[2018-07-28 07:13] LABS: BASO# 0.08 X1000 (0.0-0.2); BASO% 1.1 % (0.0-0.8); EOS# 0.29 X1000 (0.0-0.7); EOS% 4.1 % (0.0-10.0); HEMATOCRIT 34.4 % (42.0-52.0); HEMOGLOBIN 10.9 g/dL (14.0-18.0); LYMPH% 18.4 % (20.5-51.1); MCHC 31.7 g/dL (33-37); MCV 88.4 FL (81-99); MONO# 0.75 X1000 (0.11-0.59); MONO% 10.6 % (1.7-9.3); MPV 11.9 FL (7.4-10.4); NEUT# 4.64 X1000 (1.4-6.5); NEUT% 65.8 % (42.2-75.2); PLT 240 X1000 (130-400); RBC 3.89 XMIL (4.7-6.1); RDW 16.6 % (11.5-14.5); WBC 7.06 X1000 (4.8-10.8)
[2018-07-28 07:22] LABS: INR 1.06; PROTIME 14.7 Seconds (11.0-16.0)
[2018-07-28 07:32] LABS: AGAP 11; BUN 4 mg/dL (8-22); CALCIUM 9.5 mg/dL (8.8-10.2); CHLORIDE 102 mmol/L (98-107); COSMO 277; CREATININE 0.7 mg/dL (0.7-1.2); ESTIMATED GFR > 60; GLUCOSE 80 mg/dL (70-104); POTASSIUM 3.6 mmol/L (3.5-5.1); SODIUM 141 mmol/L (136-145); TCO2 28 mmol/L (25-35)
[2018-07-28] MEDS ORDERED: NS 250 ML ONE (09:33)
[2018-07-28] MEDS: PERICOLACE PO SCH (11:00)
[2018-07-28] MEDS: FERROUS SULFATE PO SCH (11:01)
[2018-07-28] MEDS: VITAMIN B-12 SL SCH (11:01)
[2018-07-28] MEDS: THERA M PLUS PO SCH (11:01)
[2018-07-28] MEDS: XARELTO PO SCH (11:02)
[2018-07-28] MEDS: ZYLOPRIM PO SCH (11:02)
[2018-07-28] MEDS: ZOLOFT PO SCH (11:02)
[2018-07-28] MEDS: CALTRATE 600 + D PO SCH (11:03)
[2018-07-28] MEDS: METHADONE PO SCH ×2 (11:03→15:50)
--- NOTE | 2018-07-28 11:03 | Diag Imaging Result Doc PS360 ---
CHEST-PORTABLE - 07/28/2018 INDICATION: picc placement COMPARISON: 07/06/2018 FINDINGS: There is a new right PICC line in good position with the catheter tip at the upper SVC. Lung volumes are lower. Stable mild cardiomegaly. No infiltrates or edema. IMPRESSION: Good right PICC line placement. Electronically signed by Rodriguez Craven 07/28/2018 11:00 AM
[2018-07-28] MEDS ORDERED: VANCOMYCIN 2 GM in NS 500 ML IV SCH (14:00)
[2018-07-28 14:03] VITALS: BP 125/37
--- NOTE | 2018-07-29 11:11 | DISCHARGE SUMMARY ---
ADMISSION DATE: 07/24/2018 DISCHARGE DATE: 07/28/2018 DISCHARGE DIAGNOSES: 1. Right foot great toe osteomyelitis. 2. Hypokalemia. 3. Bilateral lower extremity cellulitis. OTHER DIAGNOSES: 1. History of chronic atrial fibrillation, on Xarelto. 2. History of chronic pain, on methadone maintenance. 3. History of chronic gout. 4. History of chronic anemia because of gastrectomy. 5. History of morbid obesity status post gastrectomy. 6. History of chronic gastroesophageal reflux disease. 7. History of anxiety and depression. 8. History of essential hypertension. 9. Chronic iron deficiency anemia related to Venkata-en-Y bypass gastrectomy surgery. 10. Peripheral neuropathy. CONSULTATIONS DURING HOSPITALIZATION: 1. Infectious Disease, Dr. Vahid Kimble. 2. Orthopedics, Samm Augustin MD. PROCEDURES DURING HOSPITALIZATION ADMISSION: Right great toe irrigation and debridement. IMAGING DURING HOSPITAL ADMISSION: Bilateral lower extremity ultrasound had suggested chronic DVT in the left superficial femoral vein with maintained flow and bilateral deep and superficial venous reflux. Foot x-ray had suggested distal great toe bony erosions consistent with osteomyelitis. Lower extremity MRI had suggested osteomyelitis of distal phalanx of great toe with surrounding cellulitis and soft tissue ulceration. Chest x-ray had suggested appropriate placement of PICC line. DISCHARGE MEDICATIONS: Allopurinol 300 mg daily, calcium carbonate with vitamin D3 1 tablet in the morning, vitamin D3 5000 units daily, vitamin B12 5000 mcg daily, iron 325 mg p.o. daily, methadone 10 mg t.i.d., multivitamin 1 tablet daily, omeprazole 40 mg daily, ondansetron 8 mg daily as required for nausea and vomiting, Xarelto 20 mg daily, senna docusate 1 tablet b.i.d., sertraline 100 mg daily, acetaminophen 650 mg q.6 hours as needed for pain, intravenous vancomycin as per pharmacy dosing. The patient should continue this for 8 weeks. The patient had agreed to come to the infusion center daily and get his intravenous vancomycin for osteomyelitis. PHYSICAL EXAMINATION: General: Patient did not appear in any acute distress. Oral cavity is moist. Vitals: At the time of discharge, temperature 97.7 degrees, pulse 75, blood pressure 100/63, saturating 98% on room air. Lungs: Air entry bilaterally equal, no wheeze, rhonchi or crackles. S1, S2 normal. No murmur, rub, or gallop. Abdomen: Obese, soft, nontender. Extremities: He has minimal swelling of bilateral lower extremities. There was minimal pain affecting the right great toe at the site of osteomyelitis. There was onychomycosis affecting right great toe. He did have some tenderness in the bilateral calves. LABORATORIES: At the time of discharge, no leukocytosis with WBC of 7000, hemoglobin of 10.9, platelet count of 240,000. Normal electrolytes. BUN of 4, creatinine of 0.7. Microbiology: Culture from right big toe had suggested methicillin-resistant Staphylococcus aureus. HOSPITAL COURSE SUMMARY: Mr. Ornelas is a 58-year-old man who underwent right great toe surgery on 07/09/2018 to remove hardware he had for correction of his hammertoe, which was placed in September 2017. After removal of the hardware from the great hallux, the patient received p.o. antibiotics outpatient by Dr. Augustin. However, when he followed up, he had notice that there was redness and streaking around his foot. There was also cellulitis affecting his left foot. Also on the right lower extremity he had diffuse erythema going up; towards his right thigh wound, which did not improve despite antibiotic, so he was advised to go to the emergency room for intravenous antibiotics. While in the hospital, he was initially treated with p.o. linezolid following which his cellulitis of left lower extremity and right lower extremity had decreased. At the time of discharge, he did not have any appreciable erythema affecting left lower extremity. On the right lower extremity, the erythema was only restricted throughout distal right great toe. He did not have any pain at the time of movement of the right great toe. MRI of the foot was obtained to rule out osteomyelitis, which detected the patient did have bone marrow edema suggestive of osteomyelitis. Noticeably when the right hallux processes was removed, some bone was scraped by the surgeon and that is why MRI was considered despite x-ray showing osteomyelitis. MRI confirmed osteomyelitis. Infectious Disease was on board. Peripherally inserted central catheter line was inserted, and intravenous antibiotics for 8 weeks was determined. The patient was not able to afford home antibiotic infusion and he had agreed to come to the infusion center daily for a total of 8 weeks of antibiotics. At the time of discharge, there was slight confusion about if the infusion center was open over the weekend or not. Considering that, I am writing a prescription of linezolid tablets 600 mg twice a day, 2 such tablets so that the patient can take it tomorrow which is Monday, and on Monday he can come to the infusion center if the infusion center was not working over the weekend. HOSPITAL COURSE: Problem-blum, for his atrial fibrillation, his rate was well controlled. He was continued on home Xarelto. EKG did not detect QTc prolongation. For his chronic gout and chronic pain, initially, he received intravenous Dilaudid, which was changed to p.o. methadone. He was continued on home allopurinol. He was continued on iron, multivitamin and vitamin B12 for his chronic anemia related to gastric bypass surgery. He was continued on omeprazole, calcium carbonate, vitamin D3 for GERD and morbid obesity. He was continued on home sertraline for anxiety. TIME SPENT: More than 30 minutes was spent in discharging the patient. I answered all of his questions appropriately. cc: Saw Carter MD
== END 2018-07-28 18:25 | disposition home or self-care (01) | DRG 540 ==
LOC: ED 15:58 → 3N 21:47 → SUATTDRO 21:47
PROVIDERS: ATTEND Internal Medicine
CPT/HCPCS: 36569; 71010; 71045; 73620; 73720; 80048; 80053; 82607; 82728; 82746; 83036; 83540; 84443; 85025; 85045; 85610; 85651; 85730; 87040; 87070; 87186; 93005; 93010; 93970; 96365; 99285; A9270; A9579; J1170; J2543; J3370; J3480; J7040; J7050; S0109